=== PATIENT | female | born 1960 | race Caucasian/White ===

== ENCOUNTER → 2024-06-15 15:10 | Outpatient (REF) | payer OTHER, SELFPAY | LOC: WDC 15:10 | PROVIDERS: ATTENDING PHYSICIAN Obstetrics & Gynecology Gynecology; FAMILY PHYSICIAN Nurse Practitioner Adult Health | DX: Z12.31 Encounter for screening mammogram for malignant neoplasm of breast (principal) | CPT/HCPCS: 77063; 77067 ==

== ENCOUNTER 2024-10-05 11:20 | Outpatient (RCR) | payer OTHER, SELFPAY | END 2024-10-05 23:59 | disposition home or self-care (01) | LOC: RPT 11:20 | PROVIDERS: ATTENDING PHYSICIAN Physician Assistant; FAMILY PHYSICIAN Nurse Practitioner Adult Health | DX: M75.82 Other shoulder lesions, left shoulder (principal); M75.42 Impingement syndrome of left shoulder; Z73.6 Limitation of activities due to disability; M25.512 Pain in left shoulder | CPT/HCPCS: 97110; 97162 ==

== ENCOUNTER → 2024-12-07 13:36 | Outpatient (REF) | payer OTHER, SELFPAY | LOC: DHSLP 13:36 | PROVIDERS: ATTENDING PHYSICIAN Nurse Practitioner Adult Health | DX: G47.33 Obstructive sleep apnea (adult) (pediatric) (principal) | CPT/HCPCS: 95800 ==

== ENCOUNTER 2025-01-30 11:24 | Outpatient (RCR) | payer OTHER, SELFPAY | END 2025-01-30 23:59 | disposition home or self-care (01) | LOC: RPT 11:24 | PROVIDERS: ATTENDING PHYSICIAN Physician Assistant; FAMILY PHYSICIAN Nurse Practitioner Adult Health | DX: M75.82 Other shoulder lesions, left shoulder (principal); M75.42 Impingement syndrome of left shoulder; Z73.6 Limitation of activities due to disability | CPT/HCPCS: 97162; 97530 ==

== ENCOUNTER 2025-02-25 08:05 | Outpatient (RCR) | payer OTHER, SELFPAY | END 2025-02-25 23:59 | disposition home or self-care (01) | LOC: RPT 08:05 | PROVIDERS: ATTENDING PHYSICIAN Physician Assistant; FAMILY PHYSICIAN Nurse Practitioner Adult Health | DX: M75.82 Other shoulder lesions, left shoulder (principal); M75.42 Impingement syndrome of left shoulder; Z73.6 Limitation of activities due to disability; M25.511 Pain in right shoulder; M75.21 Bicipital tendinitis, right shoulder | CPT/HCPCS: 97110; 97112; 97164 ==

== ENCOUNTER → 2025-06-20 08:29 | Outpatient (REF) | payer OTHER, SELFPAY | LOC: WDC 08:29 | PROVIDERS: ATTENDING PHYSICIAN Obstetrics & Gynecology Gynecology; FAMILY PHYSICIAN Nurse Practitioner Adult Health | DX: Z12.31 Encounter for screening mammogram for malignant neoplasm of breast (principal) | CPT/HCPCS: 77063; 77067 ==